=== PATIENT | male | born 1960 | race Caucasian/White ===

== ENCOUNTER 2017-04-20 13:39 | Emergency (ER) | payer BC, OTHER ==
[2017-04-20] MEDS ORDERED: SODIUM CHLORIDE 0.9% 1,000 ML IV STA (15:01)
[2017-04-20] MEDS ORDERED: diphenhydrAMINE 50 MG/ML 1 ML VIAL IVP STA (15:02)
[2017-04-20] MEDS ORDERED: METOCLOPRAMIDE 5 MG/ML 2 ML VIAL IVP STA (15:02)
[2017-04-20] MEDS ORDERED: ACETAMINOPHEN TAB 325 MG TAB PO STA (15:02)
--- NOTE | 2017-04-20 15:10 | ED ---
General Adult HPI - General Chief complaint: Recheck/Abnormal Lab/Rx Stated complaint: Fatigue Time Seen by Provider: 04/20/17 14:47 Source: patient, family () Mode of arrival: ambulatory Limitations: no limitations - History of Present Illness Initial comments: Patient presents with headache, chills. Patient states he was well yesterday, no recent illness. States he woke up this morning with a sore throat and mild generalized headache that feels like a "pinching". Patient states while he was at work he began having chills, tightness in his shoulders bilaterally, tingling in his fingertips bilaterally. 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 Denies history of heart attack, heart disease, high blood pressure, hypertension, diabetes, tobacco use. Patient denies shortness of breath or cough. Patient admits to 3 episodes of diarrhea yesterday. Patient states urination has been normal. Patient states his son had a sore throat one week ago. Denies neck pain. - Related Data Home Medications Medication Instructions Recorded Confirmed Ibuprofen [Motrin] 600 mg PO Q6HR PRN 04/20/17 04/20/17 Previous Rx's Medication Instructions Recorded Acetaminophen [Tylenol] 650 mg PO Q4H PRN #30 tab 04/20/17 Ibuprofen 600 mg PO Q6HR PRN #20 tablet 04/20/17 Allergies Allergy/AdvReac Type Severity Reaction Status Date / Time No Known Allergies Allergy Verified 04/20/17 14:48 Review of Systems ROS Statement: Those systems with pertinent positive or pertinent negative responses have been documented in the HPI. ROS Other: All systems not noted in ROS Statement are negative. Constitutional: Reports: chills. Denies: fever, weakness, night sweats Eyes: Denies: eye pain, vision change ENT: Reports: throat pain. Denies: ear pain, hearing loss, congestion Respiratory: Denies: cough, dyspnea, wheezes, stridor Cardiovascular: Denies: chest pain, palpitations, dyspnea on exertion, edema, syncope Endocrine: Reports: fatigue Gastrointestinal: Reports: nausea, diarrhea. Denies: abdominal pain, vomiting, constipation, hematemesis, melena, hematochezia Genitourinary: Denies: urgency, dysuria, frequency, hematuria Musculoskeletal: Denies: back pain Skin: Denies: rash Neurological: Reports: headache, paresthesias. Denies: weakness, numbness, confusion Psychiatric: Denies: anxiety Past Medical History Past Medical History: No Reported History Additional Past Medical History / Comment(s): Ruptured lumbar disk History of Any Multi-Drug Resistant Organisms: None Reported Past Surgical History: Appendectomy Past Anesthesia/Blood Transfusion Reactions: No Reported Reaction Past Psychological History: No Psychological Hx Reported Smoking Status: Former smoker Past Alcohol Use History: Occasional Past Drug Use History: None Reported - Past Family History Mother Family Medical History: No Reported History General Exam - General Exam Comments Initial Comments: Lying on alanis cart, wearing thick sweatshirt, under blanket. Patient is well appearing, conversing normally, no acute distress, does not appear in pain, calm , pleasant. Smiling. Limitations: no limitations General appearance: alert, in no apparent distress Head exam: Present: atraumatic, normocephalic Eye exam: Present: normal appearance, PERRL, EOMI, other (Pupils equal and reactive bilaterally. Eye movements intact bilaterally.). Absent: scleral icterus, conjunctival injection Pupils: Present: normal accommodation ENT exam: Present: normal oropharynx, mucous membranes moist, normal external ear exam, other (Oropharynx clear, no erythema or exudates.). Absent: mucous membranes dry Neck exam: Present: normal inspection, full ROM. Absent: tenderness, meningismus Respiratory exam: Present: normal lung sounds bilaterally. Absent: respiratory distress, wheezes, rales, rhonchi, stridor Cardiovascular Exam: Present: regular rate, normal rhythm GI/Abdominal exam: Present: soft. Absent: distended, tenderness, guarding, rebound, rigid Extremities exam: Present: normal inspection Neurological exam: Present: alert, oriented X3, CN II-XII intact, other ( Sensation intact in hands and fingertips bilaterally. Muscle strength intact in upper extremities and lower extremities.). Absent: altered, motor sensory deficit Psychiatric exam: Present: normal affect, normal mood Skin exam: Present: warm, dry, intact, normal color. Absent: rash Course Vital Signs 04/20/17 04/20/17 13:41 15:49 Temperature 99.5 F 102.5 F H Pulse Rate 87 100 Respiratory 18 22 Rate Blood Pressure 165/91 135/74 O2 Sat by Pulse 98 96 Oximetry Medical Decision Making - Medical Decision Making Patient febrile temperature 100.2. Patient given Tylenol, Toradol. Patient given Reglan and Benadryl for nausea and headache. Patient given IV fluids. White blood cell count 8. No sign of infection on urinalysis or chest x-ray. Influenza negative Discussed with patient and possibility of meningitis given fever and headache. Discussed daily possible way to rule out a bacterial meningitis is with lumbar puncture. Patient states that at this time is nausea and headache are resolved. States "I no longer feel hot". After discussion with patient and , patient declined lumbar puncture, states she prefers to go home. Patient and both understand the need for strict return to ED D immediately if increased headache, uncontrolled fevers. Discussed patient could have early stages of intra-abdominal process, although patient denies abdominal pain and has no tenderness to palpation, patient agrees to return to ER if he develops abdominal pain. EKG normal sinus rhythm, no ST or T-wave changes appreciated. Troponin negative. Given patient's fever, sore throat, diarrhea yesterday, headache, chills patient 's symptoms likely secondary to viral syndrome. Discussed oral hydration at home. Prescription for Motrin and Tylenol given. Patient both understand and agree to condition to return to ER. Both understand that a bacterial meningitis cannot be ruled out at this time. We'll discharge home. Patient to follow up with primary care physician in one to 2 days. Return to ED if new or worsening symptoms. Temperature improved status post medications. Patient remains well appearing, no longer wearing jacket or blanket - Lab Data Result diagrams: 04/20/17 15:29 04/20/17 15:29 Lab Results 04/20/17 04/20/17 04/20/17 Range/Units 15:29 15:29 15:29 WBC 8.0 (3.8-10.6) k/uL RBC 4.93 (4.30-5.90) m/uL Hgb 15.6 (13.0-17.5) gm/dL Hct 46.6 (39.0-53.0) % MCV 94.6 (80.0-100.0) fL MCH 31.7 (25.0-35.0) pg MCHC 33.5 (31.0-37.0) g/dL RDW 13.5 (11.5-15.5) % Plt Count 232 (150-450) k/uL Neutrophils % 85 % Lymphocytes % 5 % Monocytes % 6 % Eosinophils % 1 % Basophils % 0 % Neutrophils # 6.8 (1.3-7.7) k/uL Lymphocytes # 0.4 L (1.0-4.8) k/uL Monocytes # 0.5 (0-1.0) k/uL Eosinophils # 0.1 (0-0.7) k/uL Basophils # 0.0 (0-0.2) k/uL Sodium 136 L (137-145) mmol/L Potassium 3.8 (3.5-5.1) mmol/L Chloride 103 (98-107) mmol/L Carbon Dioxide 26 (22-30) mmol/L Anion Gap 7 mmol/L BUN 18 (9-20) mg/dL Creatinine 0.72 (0.66-1.25) mg/dL Est GFR (MDRD) Af Amer >60 (>60 ml/min/1.73 sqM) Est GFR (MDRD) Non-Af >60 (>60 ml/min/1.73 sqM) Glucose 125 H (74-99) mg/dL Plasma Lactic Acid Moustapha (0.7-2.0) mmol/L Calcium 9.4 (8.4-10.2) mg/dL Magnesium 1.6 (1.6-2.3) mg/dL Total Bilirubin 0.5 (0.2-1.3) mg/dL AST 24 (17-59) U/L ALT 38 (21-72) U/L Alkaline Phosphatase 86 (38-126) U/L Troponin I <0.012 (0.000-0.034) ng/mL Total Protein 6.8 (6.3-8.2) g/dL Albumin 4.0 (3.5-5.0) g/dL Lipase 81 (23-300) U/L Urine Color Urine Appearance (Clear) Urine pH (5.0-8.0) Ur Specific [place] (1.001-1.035) Urine Protein (Negative) Urine Glucose (UA) (Negative) Urine Ketones (Negative) Urine Blood (Negative) Urine Nitrite (Negative) Urine Bilirubin (Negative) Urine Urobilinogen (<2.0) mg/dL Ur Leukocyte Esterase (Negative) Influenza Type A RNA (Not Detectd) Influenza Type B (PCR) (Not Detectd) 10/04/2704/20/17 04/20/17 Range/Units 15:30 15:49 16:27 WBC (3.8-10.6) k/uL RBC (4.30-5.90) m/uL Hgb (13.0-17.5) gm/dL Hct (39.0-53.0) % MCV (80.0-100.0) fL MCH (25.0-35.0) pg MCHC (31.0-37.0) g/dL RDW (11.5-15.5) % Plt Count (150-450) k/uL Neutrophils % % Lymphocytes % % Monocytes % % Eosinophils % % Basophils % % Neutrophils # (1.3-7.7) k/uL Lymphocytes # (1.0-4.8) k/uL Monocytes # (0-1.0) k/uL Eosinophils # (0-0.7) k/uL Basophils # (0-0.2) k/uL Sodium (137-145) mmol/L Potassium (3.5-5.1) mmol/L Chloride (98-107) mmol/L Carbon Dioxide (22-30) mmol/L Anion Gap mmol/L BUN (9-20) mg/dL Creatinine (0.66-1.25) mg/dL Est GFR (MDRD) Af Amer (>60 ml/min/1.73 sqM) Est GFR (MDRD) Non-Af (>60 ml/min/1.73 sqM) Glucose (74-99) mg/dL Plasma Lactic Acid Moustapha 1.3 (0.7-2.0) mmol/L Calcium (8.4-10.2) mg/dL Magnesium (1.6-2.3) mg/dL Total Bilirubin (0.2-1.3) mg/dL AST (17-59) U/L ALT (21-72) U/L Alkaline Phosphatase (38-126) U/L Troponin I (0.000-0.034) ng/mL Total Protein (6.3-8.2) g/dL Albumin (3.5-5.0) g/dL Lipase (23-300) U/L Urine Color Yellow Urine Appearance Clear (Clear) Urine pH 6.5 (5.0-8.0) Ur Specific [place] 1.016 (1.001-1.035) Urine Protein Negative (Negative) Urine Glucose (UA) Negative (Negative) Urine Ketones Trace H (Negative) Urine Blood Negative (Negative) Urine Nitrite Negative (Negative) Urine Bilirubin Negative (Negative) Urine Urobilinogen <2.0 (<2.0) mg/dL Ur Leukocyte Esterase Negative (Negative) Influenza Type A RNA Not Detected (Not Detectd) Influenza Type B (PCR) Not Detected (Not Detectd) Disposition Clinical Impression: Fever, Viral syndrome Disposition: HOME SELF-CARE Condition: Good Instructions: Fever in Adults (ED), Acute Headache (ED) Additional Instructions: Return to ER immediately if headache worsens, uncontrolled fevers, abdominal pain, any other new or worsening symptoms. Prescriptions: Acetaminophen [Tylenol] 650 mg PO Q4H PRN #30 tab PRN Reason: Pain Ibuprofen 600 mg PO Q6HR PRN #20 tablet PRN Reason: Fever Referrals: Janes Carroll DO [Primary Care Provider] - 1-2 days
[2017-04-20] MEDS ORDERED: KETOROLAC 30 MG/ML 1 ML VIAL IVP STA (15:39)
[2017-04-20 15:42] LABS: Basophils % (A) 0 %; Eosinophils # (A) 0.1 k/uL (0-0.7); Eosinophils % (A) 1 %; HCT 46.6 % (39.0-53.0); HDW 2.46; HGB 15.6 gm/dL (13.0-17.5); Luc # (Auto) 0.15; Luc % (Auto) 2; Lymphocytes # (A) 0.4 k/uL (1.0-4.8); Lymphocytes % (A) 5 %; MCH 31.7 pg (25.0-35.0); MCHC 33.5 g/dL (31.0-37.0); MCV 94.6 fL (80.0-100.0); Monocytes # (A) 0.5 k/uL (0-1.0); Monocytes % (A) 6 %; Neutrophils # (A) 6.8 k/uL (1.3-7.7); Neutrophils % (A) 85 %; RBC 4.93 m/uL (4.30-5.90); RDW 13.5 % (11.5-15.5); WBC (Perox) 7.67
[2017-04-20 15:43] LABS: Appearance,Urine Clear (Clear); Bilirubin,Urine Negative (Negative); Glucose,Urine (UA) Negative (Negative); Ketones,Urine Trace (Negative); Leukocyte Esterase,Urine Negative (Negative); Nitrite,Urine Negative (Negative); PH, Urine 6.5 (5.0-8.0); Protein,Urine Negative (Negative); Specific Gravity,Urine 1.016 (1.001-1.035); UA Billing (MACRO vs. MICRO) CHEM; Urobilinogen,Urine <2.0 mg/dL (<2.0)
[2017-04-20 15:48] LABS: ALT 38 U/L (21-72); AST 24 U/L (17-59); Alkaline Phosphatase 86 U/L (38-126); Anion Gap 7 mmol/L; Blood Urea Nitrogen 18 mg/dL (9-20); Calcium 9.4 mg/dL (8.4-10.2); Carbon Dioxide 26 mmol/L (22-30); Chloride 103 mmol/L (98-107); Glucose 125 mg/dL (74-99); Magnesium 1.6 mg/dL (1.6-2.3); Non-African American GFR(MDRD) >60 (>60 ml/min/1.73 sqM); Potassium 3.8 mmol/L (3.5-5.1); Sodium 136 mmol/L (137-145); Total Bilirubin 0.5 mg/dL (0.2-1.3); Total Protein 6.8 g/dL (6.3-8.2)
--- NOTE | 2017-04-20 16:02 | XR ---
EXAMINATION TYPE: XR chest 2V DATE OF EXAM: 04/20/2017 COMPARISON: May 19, 2012 HISTORY: Shortness of breath TECHNIQUE: Frontal and lateral views of the chest are obtained. FINDINGS: Scattered senescent parenchymal changes noted. No evidence for infiltrate. No evidence for atelectasis. Heart size is stable. Mediastinal structures are stable and grossly unremarkable. No evidence for hilar prominence. Degenerative changes dorsal spine. IMPRESSION: 1. No evidence for acute pulmonary disease.
[2017-04-20 17:26] VITALS: BP 120/59; PULSE 104; RESP 20; TEMP 100
== END 2017-04-20 17:37 | disposition home or self-care (01) ==
LOC: EC 13:39
DX: B34.9 Viral infection, unspecified (principal); Z53.29 Procedure and treatment not carried out because of patient's decision for other reasons; Z87.891 Personal history of nicotine dependence
CPT/HCPCS: 99284 ×2; 96374 ×2; 96375 ×3; 96361 ×3; 36415; 93005; 80053; 83605; 83690; 83735; 84484; 85025; 81003; 87040; 87502; 71020; J1200; J2765; J1885

== ENCOUNTER → 2017-09-14 | Outpatient (CLI) | payer BC ==
--- NOTE | 2017-09-14 15:13 | NM ---
EXAMINATION TYPE: NM hepatobiliary w CCK DATE OF EXAM: 09/14/2017 COMPARISON: NONE HISTORY: K 81.1 TECHNIQUE: After the intravenous administration of 4.68 mCi Tc 99m Mebrofenin hepatobiliary scintigra phy is performed. Immediate images post injection. FINDINGS: There is satisfactory initial accumulation of tracer by the liver. The gallbladder is visualized wit hin 26 minutes. The small bowel activity is noted within 14 minutes. At one hour CCK was administer ed, patient was injected with 1.6 mcg of Kinevac, and gallbladder ejection fraction is calculated at 19 %, abnormal. Therefore there is no scintigraphic evidence of cystic or common bile duct obstructi on to suggest acute cholecystitis. IMPRESSION: Abnormal low gallbladder ejection fraction
== END | disposition home or self-care (01) ==
LOC: RADNMMAIN 12:44
PROVIDERS: ATTEND Surgery
DX: R93.2 Abnormal findings on diagnostic imaging of liver and biliary tract (principal); K81.1 Chronic cholecystitis
CPT/HCPCS: 78227; A9537; J2805

== ENCOUNTER 2017-09-22 08:09 | Day surgery (SDC) | payer BC ==
[2017-09-17 15:34] VITALS: BMI 25.5
[~2017-09-22 08:09] MED LIST: LACTATED RINGERS 1,000 ML IV SCH
[2017-09-22 08:31] VITALS: RESP 16; TEMP 98.5
[2017-09-22] MEDS ORDERED: LIDOCAINE 1% 20 ML VIAL (10MG/ML) FOR IV START INTRADERMA ONE (08:35)
[2017-09-22] MEDS ORDERED: LIDOCAINE 1% INJ 10MG/ML (20 ML MDV) ONE (09:16)
[2017-09-22] MEDS ORDERED: PROPOFOL 10 MG/ML 20 ML VIAL IV ONE (09:16)
--- NOTE | 2017-09-22 09:22 | P.GSHP ---
History of Present Illness H&P Date: 09/22/17 Chief Complaint: Colitis, GERD This a 57-year-old male referred from Dr. Janes Cote. Patient presents today for EGD and colonoscopy. He's had issues with GERD and diarrhea. Past Medical History Past Medical History: No Reported History Additional Past Medical History / Comment(s): Ruptured lumbar disk, having stomach cramps with diarrhea, History of Any Multi-Drug Resistant Organisms: None Reported Past Surgical History: Appendectomy Additional Past Surgical History / Comment(s): laser eye surgery Past Anesthesia/Blood Transfusion Reactions: No Reported Reaction Past Psychological History: No Psychological Hx Reported Smoking Status: Former smoker Past Alcohol Use History: Daily Additional Past Alcohol Use History / Comment(s): quit smoking 15 yrs ago, smoked on and off for 5 yrs Past Drug Use History: None Reported - Past Family History Mother Family Medical History: No Reported History Medications and Allergies Home Medications Medication Instructions Recorded Confirmed Type Ibuprofen [Motrin] 400 mg PO Q6HR PRN 09/17/17 09/17/17 History Multivitamins, Thera [Multivitamin 1 tab PO DAILY 09/17/17 09/22/17 History (formulary)] Allergies Allergy/AdvReac Type Severity Reaction Status Date / Time No Known Allergies Allergy Verified 09/17/17 15:26 Surgical - Exam Vital Signs Temp Pulse Resp BP Pulse Ox 98.5 F 65 16 128/82 97 09/22/17 08:28 09/22/17 08:28 09/22/17 08:28 09/22/17 08:28 09/22/17 08:28 - General well developed, no distress - Eyes PERRL - ENT normal pinna, no hearing loss - Neck no masses - Respiratory normal expansion - Cardiovascular Rhythm: regular - Abdomen Abdomen: soft, non tender Assessment and Plan Assessment: GERD, diarrhea. We'll perform EGD colonoscopy.
[2017-09-22 09:57] VITALS: BP 122/77; PULSE 62
--- NOTE | 2017-09-22 13:31 | P.OP ---
Date of Procedure: 09/22/17 Preoperative Diagnosis: GERD Diarrhea Postoperative Diagnosis: Antral gastritis Mild esophagitis No evidence of hiatal hernia Procedure(s) Performed: EGD Colonoscopy Anesthesia: MAC Surgeon: Kal Russ Pathology: other (Antrum, esophagus) Condition: stable Disposition: PACU Description of Procedure: The patient's placed on the endoscopy table in the lateral position. He received IV sedation. The gastroscope placed oropharynx passed in the esophagus and into the stomach. Scope was then placed through the pylorus. The first and second portion of the duodenum appeared normal. Scope was then brought back the antrum this was mildly inflamed. A biopsies performed. The scope was then retroflexed and the remainder of the stomach appeared normal. There was no significant hiatal hernia. The GE junction was at 40 cm. The distal esophagus appeared mildly inflamed and a biopsies performed. The proximal esophagus appeared normal. The scope was withdrawn for patient. Next digital rectal exam is performed which revealed no abnormalities. The flexor colonoscope was then placed patient anus passed throughout the entire colon. The ileocecal valve was visualized. The cecum, ascending and transverse colon appeared normal. The scope was then brought back into the descending and sigmoid colon is mild diverticular changes. Scope was then brought back the rectum and this appeared normal. Scope was withdrawn from patient.
== END 2017-09-22 10:15 | disposition home or self-care (01) ==
LOC: ORWHC2ENDO 08:09
PROVIDERS: ATTEND Surgery
DX: K29.50 Unspecified chronic gastritis without bleeding (principal); K21.0 Gastro-esophageal reflux disease with esophagitis; K57.30 Diverticulosis of large intestine without perforation or abscess without bleeding; M51.26 Other intervertebral disc displacement, lumbar region; Z87.891 Personal history of nicotine dependence
CPT/HCPCS: 88305; 43239; J2001; J2704; G0121

== ENCOUNTER 2017-10-06 10:23 | Day surgery (SDC) | payer BC ==
[2017-10-05 09:24] VITALS: BMI 25.1
[~2017-10-06 10:23] MED LIST changes: +DEXAMETHASONE SOD PHOSPHATE 10 MG/ML 1 ML VIAL IV ONE; +HEPARIN SODIUM,PORCINE 5,000 UNIT/ML 1 ML VIAL SQ ONE; -LACTATED RINGERS 1,000 ML IV SCH; +MORPHINE SULFATE 4 MG/ML SYRINGE IV PRN; +ONDANSETRON 4 MG/2 ML VIAL IVP ONE; +ceFAZolin IN SWFI 2 GM/20 ML SYRINGE IVP ONE
[2017-10-06] MEDS ORDERED: LIDOCAINE 1% 20 ML VIAL (10MG/ML) FOR IV START INTRADERMA ONE (12:27)
[2017-10-06] MEDS: LACTATED RINGERS 1,000 ML IV SCH ×2 (12:28→13:11)
--- NOTE | 2017-10-06 12:45 | P.GSHP ---
History of Present Illness H&P Date: 10/06/17 Chief Complaint: Right upper quadrant pain This is a 57-year-old male referred from Dr. Carroll. Patient has complaints of right upper e quadrant pain. His recent HIDA scan shows decreased ejection fraction of 19%. He presents today for laparoscopic close to to for chronic cholecystitis. Past Medical History Past Medical History: No Reported History Additional Past Medical History / Comment(s): Ruptured lumbar disk, stomach pains History of Any Multi-Drug Resistant Organisms: None Reported Past Surgical History: Appendectomy Additional Past Surgical History / Comment(s): EGD,colonoscopy Past Anesthesia/Blood Transfusion Reactions: No Reported Reaction Smoking Status: Former smoker - Past Family History Mother Family Medical History: No Reported History Medications and Allergies Home Medications Medication Instructions Recorded Confirmed Type Ibuprofen [Motrin] 400 mg PO Q6HR PRN 09/17/17 10/05/17 History Multivitamins, Thera [Multivitamin 1 tab PO DAILY 09/17/17 10/05/17 History (formulary)] Allergies Allergy/AdvReac Type Severity Reaction Status Date / Time No Known Allergies Allergy Verified 10/05/17 09:20 Surgical - Exam Vital Signs Temp Pulse Resp BP Pulse Ox 98.4 F 61 18 115/74 97 10/06/17 12:07 10/06/17 12:07 10/06/17 12:07 10/06/17 12:07 10/06/17 12:07 - General well developed, no distress - Eyes PERRL - ENT normal pinna - Neck no masses - Respiratory normal expansion - Cardiovascular Rhythm: regular - Abdomen Abdomen: soft, non tender Assessment and Plan Assessment: Chronic cholecystitis Abnormal HIDA scan We'll perform laparoscopic cholecystectomy
[2017-10-06] MEDS ORDERED: MIDAZOLAM 2 MG/2 ML VIAL IVP ONE (12:51)
[2017-10-06] MEDS ORDERED: DEXAMETHASONE SOD PHOS (MDV) 100 MG/10 ML VIAL ONE (13:13)
[2017-10-06] MEDS ORDERED: ROCURONIUM BROMIDE 10 MG/ML 10 ML VIAL IV ONE (13:13)
[2017-10-06] MEDS ORDERED: SUCCINYLCHOLINE CHLORIDE 100 MG/5 ML SYR IV ONE (13:13)
[2017-10-06] MEDS ORDERED: KETOROLAC 30 MG/ML 1 ML VIAL ONE (13:13)
[2017-10-06] MEDS ORDERED: PROPOFOL 10 MG/ML 20 ML VIAL IV ONE (13:13)
[2017-10-06] MEDS ORDERED: fentaNYL (PF) 50 MCG/ML 2 ML AMP ONE (13:13)
[2017-10-06] MEDS ORDERED: MIDAZOLAM 2 MG/2 ML VIAL ONE (13:13)
[2017-10-06] MEDS ORDERED: BUPIVACAINE (PF) 0.5% 30 ML VIAL SQ ONE (13:31)
--- NOTE | 2017-10-06 13:59 | P.OP ---
Date of Procedure: 10/06/17 Preoperative Diagnosis: Cholecystitis Postoperative Diagnosis: Cholecystitis Procedure(s) Performed: Laparoscopic cholecystectomy Anesthesia: JACE Surgeon: Kal Russ Estimated Blood Loss (ml): 5 Pathology: other (Gallbladder) Condition: stable Disposition: PACU Description of Procedure: The patient was placed on the operating table. The patient received a general endotracheal tube anesthesia. The patients abdomen was prepped and draped in the usual sterile fashion. Through an infraumbilical stab incision, the fascia of the anterior abdominal wall was grasped with a pair of Kochers and then the Veress needle was placed in the peritoneal cavity. Position of the Veress needle was confirmed with positive drop test. The abdomen was then insufflated. After adequate insufflation, the 10 mm trocar was placed in the peritoneal cavity. Following this the laparoscope was placed in the peritoneal cavity. The patient was placed in the head-up, right side up position and then a 5 mm trocar was placed in the right lateral and right subcostal position under direct visualization. A 8 mm trocar was placed in the epigastric position. The gallbladder was grasped in the fundus and infundibulum. Traction on the gallbladder was placed in the lateral and the cephalad positions. The triangle of Calot was visualized.. The cystic duct was bluntly dissected until the union of the cystic duct and common bile duct was seen. The cystic duct was then divided and sealed with the Harmonic scissors. A PDS Endoloop was then placed throughout the cystic duct stump. The cystic artery divided and sealed with the Harmonic scissors. The gallbladder was then removed from the liver bed using Harmonic scissors. The gallbladder was then extracted through the epigastric port site. Operative field was checked for any bleeding spots and Harmonic scissors was used to coagulate the liver bed. The abdomen was irrigated. The trocars were removed. The skin was closed using interrupted 3-0 Vicryl suture. Dermabond dressing were applied. The patient tolerated the procedure well.
[2017-10-06 14:12] VITALS: RESP 16; TEMP 97.1
[2017-10-06 15:57] VITALS: BP 125/81; PULSE 74
== END 2017-10-06 16:04 | disposition home or self-care (01) ==
LOC: OR 10:23
PROVIDERS: ATTEND Surgery
DX: K80.10 Calculus of gallbladder with chronic cholecystitis without obstruction (principal); Z87.891 Personal history of nicotine dependence; Z90.49 Acquired absence of other specified parts of digestive tract
CPT/HCPCS: 88304; 47562; J2250; J1644; J1100 ×2; J2405; J3010; J1885; J0330; J2704; J0690

== ENCOUNTER → 2018-01-17 | Outpatient (CLI) | payer BC ==
--- NOTE | 2018-01-18 07:02 | MR ---
EXAMINATION TYPE: MR lumbar spine wo con DATE OF EXAM: 01/17/2018 COMPARISON: NONE HISTORY: Lumbar radiculopathy (M54.16) per order. Low back pain causing leg pain for 4 months with pa in into bilateral lower extremities per patient. TECHNIQUE: Multiplanar, multisequence imaging of the lumbar spine is performed without IV contrast. FINDINGS: Sagittal images of the lumbar spine show moderate anterior height loss L1 level without thom picious bone marrow signal. Craniocaudal diameter is roughly 1.2 cm versus posterior margin of 2.6 cm . Alignment is satisfactory. Multilevel disc desiccation is seen. There is mild to moderate disc spac e narrowing most prominent posteriorly L1-L2 level. There is mild disc space narrowing L3-L4 and L4-L 5 levels. There is moderate to advanced disc space narrowing L5-S1 level with heterogeneous Modic typ e II endplate changes involving anterior inferior L5 endplate. Large posterior disc herniation L4-L5 level is seen on sagittal images. The conus medullaris is normal in position and signal ending mid L1 level. Minimal multilevel anterior spurring is present. Axial images at the T12-L1 level shows mild facet arthropathy, spinal canal is preserved, bilateral n eural foramina are patent. Axial images at the L1-L2 level show mild broad based posterior disc protrusion minimally effacing an terior thecal sac. Bilateral neural foramina are patent. Axial images at L2-L3 level show mild facet degenerative changes bilaterally. Spinal canal is preserv ed. Bilateral neural foramina are patent. Axial images at the L3-L4 level show mild broad disc bulge and mild facet arthropathy bilaterally. Sp inal canal is preserved. Bilateral neural foramina are patent. Axial images at L4-L5 level show moderate facet degenerative changes bilaterally. There is broad disc bulge with prominent central disc protrusion component causing significant spinal canal effacement o r stenosis on axial image 8. There is suggestion on sagittal image 6 of fracture disc fragment or dis continuity of the disc herniation but this is less well appreciated on axial images. Bilateral neural foramina remain patent. Residual canal measures roughly 3.6 mm AP by 6.1 mm transversely Axial images at L5-S1 level show moderate to severe broad disc bulge with marginal spurring and mild facet arthropathy bilaterally. Spinal canal is preserved. There is fairly moderate bilateral inferior neural foraminal narrowing encroachment along inferior margin of both L5 nerves, for reference sagit lynda image 11 on the right. No suspicious retroperitoneal findings are identified. IMPRESSION: Multilevel degenerative changes in lumbar spine as detailed above, attention to L4-L5 lev el where there is spinal canal stenosis most likely on basis of large disc herniation though free fra gment is not excluded. Advise neurosurgical consultation.
== END | disposition home or self-care (01) ==
LOC: RADMRIMAIN 15:59
PROVIDERS: ATTEND Family Medicine
DX: M48.061 Spinal stenosis, lumbar region without neurogenic claudication (principal); M47.26 Other spondylosis with radiculopathy, lumbar region
CPT/HCPCS: 72148

== ENCOUNTER → 2019-01-19 | Outpatient (CLI) | payer OTHER ==
--- NOTE | 2019-01-19 16:54 | XR ---
EXAMINATION TYPE: XR orbit detect foreign body DATE OF EXAM: 01/19/2019 COMPARISON: None HISTORY: History of foreign objects in bilateral eyes TECHNIQUE: Three-view bilateral orbits FINDINGS: No suspicious radiopaque foreign body is evident in or about the orbits. IMPRESSION: 1. No suspicious foreign bodies identified
== END | disposition home or self-care (01) ==
LOC: RADXRMAIN 15:13
PROVIDERS: ATTEND Family Medicine
DX: T15.92XA Foreign body on external eye, part unspecified, left eye, initial encounter (principal)
CPT/HCPCS: 70030

== ENCOUNTER → 2019-02-01 | Outpatient (CLI) | payer OTHER ==
--- NOTE | 2019-02-01 15:15 | XR ---
EXAMINATION TYPE: XR chest 2V DATE OF EXAM: 02/01/2019 COMPARISON: 04/20/2017 HISTORY: Chest pain TECHNIQUE: Frontal and lateral views of the chest are obtained. FINDINGS: There is no focal air space opacity. No evidence for pneumothorax. No pleural effusion. The cardiac silhouette size is within normal limits. The osseous structures are grossly intact. IMPRESSION: 1. No acute cardiopulmonary process.
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
== END | disposition home or self-care (01) ==
LOC: RADCTMAIN 14:55
PROVIDERS: ATTEND Neurological Surgery
DX: M48.061 Spinal stenosis, lumbar region without neurogenic claudication (principal); M51.16 Intervertebral disc disorders with radiculopathy, lumbar region
CPT/HCPCS: 71046; 72131

== ENCOUNTER → 2019-02-03 | Outpatient (CLI) | payer OTHER ==
[2019-02-03 14:21] LABS: HCT 48.8 % (39.0-53.0); HGB 16.1 gm/dL (13.0-17.5); MCHC 33.1 g/dL (31.0-37.0); MCV 93.7 fL (80.0-100.0); Mean Platelet Volume 6.6; Platelet Count 264 k/uL (150-450); RBC 5.21 m/uL (4.30-5.90); RDW 12.6 % (11.5-15.5); WBC 5.4 k/uL (3.8-10.6)
[2019-02-03 14:34] LABS: INR 0.9 (<1.2); Prothrombin Time 9.8 sec (9.0-12.0)
[2019-02-03 14:53] LABS: Appearance,Urine Clear (Clear); Bilirubin,Urine Negative (Negative); Blood,Urine Negative (Negative); Color,Urine Yellow; Glucose,Urine (UA) Negative (Negative); Ketones,Urine Negative (Negative); Leukocyte Esterase,Urine Negative (Negative); Nitrite,Urine Negative (Negative); Protein,Urine Negative (Negative); Specific Gravity,Urine 1.026 (1.001-1.035); Urobilinogen,Urine <2.0 mg/dL (<2.0)
[2019-02-03 14:55] LABS: Basophils # (M) 0.05 k/uL (0-0.2); Eosinophils # (M) 0.05 k/uL (0-0.7); Lymphocytes # (M) 1.89 k/uL (1.0-4.8); Monocytes # (M) 0.27 k/uL (0-1.0); Neutrophils % (M) 58 %; Nucleated Red Blood Cells 0 /100 WBC (0-0); Total Cells Counted 100
[2019-02-03 18:47] LABS: African American GFR (CKD) 110.3 (60.0-200.0); Albumin 4.4 g/dL (3.80-4.90); Albumin/Globulin Ratio 2.1 (1.60-3.17); Anion Gap 8.1 mmol/L (4.00-12.00); BUN/Creat Ratio 28.89 Ratio (12.00-20.00); Calcium 9.5 mg/dL (8.7-10.3); Carbon Dioxide 28.9 mmol/L (21.6-31.8); Globulin 2.1 g/dL (1.6-3.3); Potassium 4.6 mmol/L (3.5-5.5); Total Bilirubin 0.7 mg/dL (0.3-1.2); Total Protein 6.5 g/dL (6.2-8.2)
== END | disposition home or self-care (01) ==
LOC: LABWHC1 13:59
PROVIDERS: ATTEND Neurological Surgery
DX: M51.16 Intervertebral disc disorders with radiculopathy, lumbar region (principal)
CPT/HCPCS: 36415; 80053; 81003; 85025; 85610; 87070

== ENCOUNTER → 2019-12-05 | Outpatient (CLI) | payer OTHER ==
--- NOTE | 2019-12-05 12:33 | XR ---
EXAMINATION TYPE: XR knee complete RT DATE OF EXAM: 12/05/2019 CLINICAL HISTORY: Right knee pain TECHNIQUE: Three views of the right knee are obtained. COMPARISON: None. FINDINGS: There is no acute fracture/dislocation evident in right knee. The tri-compartment joint s paces appear aligned. Small osteophytes are seen in the patellofemoral compartment. The overlying sof t tissue appears unremarkable. IMPRESSION: There is no acute fracture or dislocation in the right knee. Mild patellofemoral compart ment arthropathy.
== END | disposition home or self-care (01) ==
LOC: RADXRMAIN 11:56
PROVIDERS: ATTEND Nurse Practitioner Family
DX: M12.861 Other specific arthropathies, not elsewhere classified, right knee (principal)

== ENCOUNTER → 2020-12-11 | Outpatient (CLI) | payer OTHER ==
--- NOTE | 2020-12-12 03:23 | MR ---
EXAMINATION TYPE: MR knee RT wo con DATE OF EXAM: 12/11/2020 COMPARISON: None HISTORY: Right knee pain Multiplanar multiecho imaging of the knee was performed without contrast. There is there is complex popliteal cyst measuring 4.7 x 2 cm. The anterior and posterior cruciate li gaments are intact. There is abnormal increased signal throughout a large portion of the posterior horn of the medial men iscus. The collateral ligaments are intact. There is some increased signal on the T2 images in the me dial tibial condyle consistent with bone bruise. There is narrowing of the medial joint space and thi nning of the cartilage. There is spurring of the femoral and tibial condyles. IMPRESSION: Moderate osteoarthritis in the medial joint space. Degenerative cyst formation in the subchondral med ial tibial plateau measuring 8 mm. Edema and bone bruise of the medial tibial condyle. Complex extensive tear of the posterior horn medial meniscus. Popliteal cyst.
== END | disposition home or self-care (01) ==
LOC: RADMRIMAIN 18:48
PROVIDERS: ATTEND Orthopaedic Surgery
DX: M17.11 Unilateral primary osteoarthritis, right knee (principal); M23.321 Other meniscus derangements, posterior horn of medial meniscus, right knee; M71.21 Synovial cyst of popliteal space [Baker], right knee

== ENCOUNTER → 2021-01-15 | Outpatient (CLI) | payer OTHER ==
[2021-01-15 13:32] LABS: Basophils % (A) 1 %; Eosinophils # (A) 0.1 k/uL (0-0.7); Eosinophils % (A) 3 %; HCT 46.8 % (39.0-53.0); HGB 16.3 gm/dL (13.0-17.5); Lymphocytes # (A) 1.8 k/uL (1.0-4.8); Lymphocytes % (A) 33 %; MCHC 34.8 g/dL (31.0-37.0); MCV 92.1 fL (80.0-100.0); Mean Platelet Volume 6.9; Monocytes # (A) 0.4 k/uL (0-1.0); Monocytes % (A) 7 %; Neutrophils # (A) 2.9 k/uL (1.3-7.7); Neutrophils % (A) 54 %; Platelet Count 256 k/uL (150-450); RBC 5.08 m/uL (4.30-5.90); RDW 12.2 % (11.5-15.5); WBC 5.4 k/uL (3.8-10.6)
[2021-01-15 13:45] LABS: Potassium 4.2 mmol/L (3.5-5.1)
== END | disposition home or self-care (01) ==
LOC: LABPAT 12:13
PROVIDERS: ATTEND Orthopaedic Surgery
DX: Z01.812 Encounter for preprocedural laboratory examination (principal); M23.91 Unspecified internal derangement of right knee; R06.02 Shortness of breath
CPT/HCPCS: 36415; 80051; 85025; 93005

== ENCOUNTER 2021-01-29 09:01 | Day surgery (SDC) | payer OTHER ==
[2021-01-27 13:38] VITALS: BMI 25.8
--- NOTE | 2021-01-28 18:14 | HP ---
HISTORY AND PHYSICAL DATE OF SURGERY: 01/29/2021 Kaz Vides is a 60-year-old gentleman seen with progressive right knee pain. We discussed options. He elected to proceed with arthroscopy. Consent was obtained. PAST MEDICAL HISTORY: Noncontributory. SURGICAL HISTORY: Noncontributory. DAILY MEDICATIONS: None. ALLERGIES: None. SOCIAL HISTORY: He denies tobacco use. PHYSICAL EVALUATION OF THE RIGHT KNEE: Range of motion 0 to 130. Mild effusion. Tenderness medial joint line. Tenderness lateral joint line. Positive medial Naveed's. Positive lateral Naveed's. Ligaments stable. Hip rotation without pain. Distal neurovascular exam is intact. RADIOGRAPHS: Radiographs of the right knee revealed osteoarthritic changes. MRI right knee revealed medial meniscal tear, osteoarthritis, and cyst. IMPRESSION: 1. Internal derangement of right knee with medial meniscal tear. 2. Right knee osteoarthritis. PLAN: Right knee arthroscopy with partial meniscectomy and debridement. MMODL / IJN: [id number] /
[~2021-01-29 09:01] MED LIST changes: -DEXAMETHASONE SOD PHOSPHATE 10 MG/ML 1 ML VIAL IV ONE; -HEPARIN SODIUM,PORCINE 5,000 UNIT/ML 1 ML VIAL SQ ONE; +LACTATED RINGERS 1,000 ML IV SCH; +LIDOCAINE 1% (10MG/ML) FOR IV START INTRADERMA PRN; -MORPHINE SULFATE 4 MG/ML SYRINGE IV PRN; -ONDANSETRON 4 MG/2 ML VIAL IVP ONE; -ceFAZolin IN SWFI 2 GM/20 ML SYRINGE IVP ONE; +fentaNYL (PF) 50 MCG/ML 2 ML AMP IV PRN
[2021-01-29] MEDS ORDERED: ONDANSETRON 4 MG/2 ML VIAL ONE (09:42)
[2021-01-29] MEDS ORDERED: ONDANSETRON 4 MG/2 ML VIAL IVP ONE (09:43)
[2021-01-29] MEDS ORDERED: MIDAZOLAM 2 MG/2 ML VIAL ONE (10:14)
[2021-01-29] MEDS ORDERED: PROPOFOL 10 MG/ML 20 ML VIAL IV ONE (10:14)
[2021-01-29] MEDS ORDERED: HYDROmorphone (PF) 1 MG/ML ONE (10:14)
[2021-01-29] MEDS ORDERED: fentaNYL (PF) 50 MCG/ML 2 ML AMP ONE (10:14)
[2021-01-29] MEDS ORDERED: LIDOCAINE 1% INJ 10MG/ML (20 ML MDV) ONE (10:14)
[2021-01-29] MEDS ORDERED: KETOROLAC 15 MG/ML 1 ML VIAL ONE (10:14)
[2021-01-29] MEDS ORDERED: BUPIVACAINE (PF) 0.25% 30 ML VIAL INTRAARTIC ONE (10:17)
[2021-01-29 11:07] VITALS: TEMP 96.9
--- NOTE | 2021-01-29 11:09 | P.OP ---
Date of Procedure: 01/29/21 Preoperative Diagnosis: Internal derangement right knee Postoperative Diagnosis: 1. Tear lateral meniscus right knee 2. Grade 3 chondromalacia medial femoral condyle right knee 3. 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 Medial plica right knee 5. Reactive synovitis medial, lateral and suprapatellar compartments right knee Procedure(s) Performed: 1. Arthroscopic partial lateral meniscectomy right knee 2. Arthroscopic chondroplasty medial femoral condyle right knee 3. Arthroscopic chondroplasty femoral sulcus right knee 4. Arthroscopic resection medial plica right knee 5. Arthroscopic partial synovectomy medial, lateral and suprapatellar compartments right knee Anesthesia: GETA, local Surgeon: Bobby Ramirez Estimated Blood Loss (ml): 7 Pathology: none sent Condition: stable Disposition: PACU Indications for Procedure: 60-year-old patient seen with progressive right knee pain. After having treatment options discussed, he elected to proceed with arthroscopy. Operative Findings: See description of procedure Description of Procedure: Patient was taken to the operative suite. Patient underwent a general anesthetic by the department of anesthesia. Patient was given preoperative antibiotics. The right lower extremity was placed in a well-padded arthroscopic leg villatoro. The right leg was prepped and draped in the normal sterile orthopedic fashion. A lateral parapatellar and suprapatellar incision was made. Trochars were inserted. Arthroscopy was initiated. Suprapatellar pouch revealed diffuse thick reactive synovitis. The patellofemoral joint appeared to articulate congruently. There was grade 3/4 chondromalacia involving the femoral sulcus with some osteochondral flap tears present. The scope was guided into the medial gutter. No loose bodies or plica were identified. The scope was then guided into the medial compartment. A medial parapatellar incision was made. Trocar inserted followed by probe. The medial meniscus was probed and found to be stable. There were grade 3 chondral moist changes diffusely about the medial femoral condyle with some osteochondral flap tears present. There was some thick reactive synovitis anteriorly. I performed a chondroplasty of the medial femoral condyle getting down to stable osteochondral tissue. I performed a partial synovectomy decompressing the thick reactive synovitis. The shaver was removed. The residual osteochondral surface of the medial femoral condyle was stable. There was good decompression of the synovitis. Scope and probe were then guided into the intercondylar notch. Cruciates were identified, probed and found to be stable. The scope and probe were then guided into lateral compartment. There was a radial tear involving the posterior horn lateral meniscus. There were grade 2 chondromalacia changes in that area with no significant osteochondral tears present. There were grade 1 chondromalacia changes lateral femoral condyle. There was thick reactive synovitis anteriorly. I performed a partial lateral meniscectomy getting down to stable meniscal tissue. I performed a partial synovectomy decompressing the thick reactive synovitis anteriorly. The shaver was removed. The residual meniscus was probed and found to be stable. There was good decompression of synovitis. The scope was in guided back into the suprapatellar compartment. I introduced a motorized shaver into the suprapatellar compartment. I debrided some piecemeal fragments of meniscus I encountered. I resected that medial plica. I performed a partial synovectomy decompressing the thick reactive synovitis. The shaver was removed. I now took the knee through range of motion noted complete resection of the plica with no impingement. It was good decompression of synovitis. I took one more look on the entire knee, no residual debris. Instruments were now removed from the joint. The joint was infiltrated with .25% Marcaine. Steri-Strips were applied to the portal sites. Sterile dressings were applied. The patient was placed into a MARGARET hose. No tourniquet was utilized. The patient was awakened, transferred to a bed and taken to recovery stable satisfactory condition.
[2021-01-29 12:35] VITALS: BP 143/90; PULSE 66; RESP 17
== END 2021-01-29 12:39 | disposition home or self-care (01) ==
LOC: OR 09:01
PROVIDERS: ATTEND Orthopaedic Surgery
DX: M23.200 Derangement of unspecified lateral meniscus due to old tear or injury, right knee (principal); M94.261 Chondromalacia, right knee; M67.51 Plica syndrome, right knee; M65.861 Other synovitis and tenosynovitis, right lower leg; M17.11 Unilateral primary osteoarthritis, right knee; Z98.890 Other specified postprocedural states
CPT/HCPCS: 29881; J2250; J0690; J2405; J2001; J3010; J1170; J1885; J2704

== ENCOUNTER 2023-02-04 08:40 | Day surgery (SDC) | payer OTHER ==
[2023-01-29 10:18] VITALS: BMI 24.3
[2023-02-04 09:20] VITALS: TEMP 98.1
[2023-02-04] MEDS: LACTATED RINGERS 1,000 ML IV SCH ×2 (09:20→09:36)
[2023-02-04] MEDS ORDERED: PROPOFOL 10 MG/ML 20 ML VIAL IV ONE (09:37)
--- NOTE | 2023-02-04 09:40 | P.GSHP ---
History of Present Illness H&P Date: 02/04/23 Chief Complaint: Screening colonoscopy This a 8-year-old male presents today for screening colonoscopy. Patient denies a significant GI complaints. Past Medical History Past Medical History: No Reported History Additional Past Medical History / Comment(s): Ruptured lumbar disk, stomach pains History of Any Multi-Drug Resistant Organisms: None Reported Past Surgical History: Appendectomy, Back Surgery Additional Past Surgical History / Comment(s): EGD, colonoscopy, 2 ruptured disc surgeries, lasik surgery bilaterally, LT KNEE SX Past Anesthesia/Blood Transfusion Reactions: No Reported Reaction Smoking Status: Former smoker - Past Family History Mother Family Medical History: No Reported History Medications and Allergies Home Medications Medication Instructions Recorded Confirmed Type No Known Home Medications 01/29/23 02/04/23 History Allergies Allergy/AdvReac Type Severity Reaction Status Date / Time No Known Allergies Allergy Verified 02/04/23 09:08 Surgical - Exam Vital Signs Temp Pulse Resp BP Pulse Ox 98.1 F 60 18 128/79 95 02/04/23 09:17 02/04/23 09:17 02/04/23 09:17 02/04/23 09:17 02/04/23 09:17 - General well developed, well nourished, no distress - Eyes PERRL - ENT normal pinna - Neck no masses - Respiratory normal expansion - Cardiovascular Rhythm: regular - Abdomen Abdomen: soft, non tender Assessment and Plan Assessment: We'll perform screening colonoscopy
--- NOTE | 2023-02-04 09:52 | P.OP ---
Date of Procedure: 02/04/23 Preoperative Diagnosis: Screening colonoscopy Postoperative Diagnosis: Diverticulosis Procedure(s) Performed: Colonoscopy Anesthesia: MAC Surgeon: Kal Russ Pathology: none sent Condition: stable Disposition: PACU Description of Procedure: Patient's placed on the endoscopy table in the lateral position. He received IV sedation. Digital rectal exam performed which revealed a few external hemorrhoids. The flexible colonoscope was then placed patient anus and passed throughout the entire colon. The ileocecal valve was visualized. The cecum, ascending and transverse colon appeared normal. In the descending; there is mild diverticulosis. The scope was then brought back the rectum and this appeared normal. Scope withdrawn for patient.
[2023-02-04 09:55] VITALS: RESP 16
[2023-02-04 10:15] VITALS: BP 124/80; PULSE 55
== END 2023-02-04 10:25 | disposition home or self-care (01) ==
LOC: ORWHC2ENDO 08:40
PROVIDERS: ATTEND Surgery
DX: Z12.11 Encounter for screening for malignant neoplasm of colon (principal); Z90.89 Acquired absence of other organs; Z87.891 Personal history of nicotine dependence; Z79.899 Other long term (current) drug therapy
CPT/HCPCS: 45378; J2704

== ENCOUNTER → 2024-02-04 | Outpatient (CLI) | payer OTHER ==
--- NOTE | 2024-02-04 16:34 | XR ---
Bilateral knees HISTORY: Knee pain COMPARISON: Right knee, 12/05/2019 and left knee 08/14/2019 TECHNIQUE: 5 standing views knees were obtained. FINDINGS: There are no fractures, dislocations or focal intraosseous abnormalities. There is moderate narrowing and mild hypertrophic spurring of the patellofemoral and medial compartme nts of both knees. There is mild narrowing of the lateral compartments of both knees. There is no joint effusion. IMPRESSION: 1. No acute trauma. 2. Tricompartment osteoarthritis of both knees as described above greatest in the medial and patellof emoral compartments.
== END | disposition home or self-care (01) ==
LOC: RADXRMAIN 15:36
PROVIDERS: ATTEND Orthopaedic Surgery
DX: M17.0 Bilateral primary osteoarthritis of knee (principal)